=== PATIENT | female | born 1975 | race American Indian/Alaskan Native ===

== ENCOUNTER 2016-12-25 22:02 | Inpatient (IN) | payer MEDICAID, OTHER ==
[2016-12-25 23:16] LABS: Basophils % (Auto) 0.7 % (0.0-1.8); Eosinophils % (Auto) 1.2 % (0.0-4.3); Hematocrit 40.5 % (30.3-42.9); Hemoglobin 13.4 gm/dl (10.1-14.3); Mean Corpuscular HGB Conc 33 % (30-34); Mean Corpuscular Hemoglobin 30 pg (28-32); Mean Corpuscular Volume 89 fl (79-97); Platelet Count 228 K/mm3 (140-440); Red Blood Count 4.54 M/mm3 (3.65-5.03); Red Cell Distribution Width 14.1 % (13.2-15.2)
[2016-12-25 23:32] LABS: Anion Gap 20 mmol/L; BUN/Creatinine Ratio 16.66; Blood Urea Nitrogen 10 mg/dL (7-17); Calcium 9.6 mg/dL (8.4-10.2); Carbon Dioxide 24 mmol/L (22-30); Chloride 95.6 mmol/L (98-107); Potassium 4.2 mmol/L (3.6-5.0); Sodium 135 mmol/L (137-145)
[2016-12-25 23:43] LABS: Glucose 512 mg/dL (65-100)
[2016-12-26 02:08] LABS: Bacteria,Urine 1+ /HPF (Negative); Bilirubin,Urine NEG (Negative); Blood,Urine NEG (Negative); Ketones,Urine NEG (Negative); Leukocyte Esterase,Urine TR (Negative); Mucus,Urine FEW /HPF; Nitrite,Urine POS (Negative); Protein,Urine <15 mg/dL mg/dL (Negative); Urobilinogen,Urine < 2.0 mg/dL (<2.0)
--- NOTE | 2016-12-26 07:39 | Emergency Department Report ---
ED Chest Pain HPI - General Chief Complaint: Chest Pain Stated Complaint: CP Time Seen by Provider: 12/26/16 06:38 Source: patient Mode of arrival: Ambulatory Limitations: No Limitations - History of Present Illness Initial Comments: 41-year-old female with a history of hypertension and diabetes. Noncompliant with medications. Here with complaint of chest pain that has been worsening over the course last 3 days. Patient states the pain is in on the left side of her chest. It occurs with activity or at rest. She does state that she is more fatigue and short of breath. Denies fevers chills nausea vomiting. States she's been out of her medication for over a month. He is to take lisinopril and unknown insulin. MD Complaint: chest pain -: days(s) (3) Onset: during rest, during exertion Pain Location: left chest Pain Radiation: none Severity: moderate Severity scale (0 -10): 5 Quality: sharp Consistency: constant Improves With: nothing Worsens With: exertion re: dyspnea. denies: nausea, vomting, diaphoresis Other Symptoms: denies: cough, fever, syncope, rash, acid taste in mouth, leg swelling, palpitations, burping, other - Related Data Previous Rx's Medication Instructions Recorded Last Taken Type Ibuprofen [Motrin 600 MG tab] 600 mg PO Q6H PRN #30 tablet 03/23/14 Unknown Rx Insulin NPH, Human [NovoLIN N] 10 unit SUB-Q QPMDIAB #1 vial 03/23/14 Unknown Rx Insulin NPH, Human [NovoLIN N] 21 unit SUB-Q QDDIAB #1 vial 03/23/14 Unknown Rx Insulin Regular, Human [HumuLIN R] 9 units SUB-Q QPMDIAB #1 vial 03/23/14 Unknown Rx Insulin Regular, Human [HumuLIN R] 12 units SUB-Q QDDIAB #1 vial 03/23/14 Unknown Rx Labetalol [Normodyne TAB] 300 mg PO BID #60 tablet 03/23/14 Unknown Rx oxyCODONE /ACETAMINOPHEN [Percocet 2 tab PO Q6H PRN #30 tablet 03/23/14 Unknown Rx 5/325 mg] Allergies Allergy/AdvReac Type Severity Reaction Status Date / Time aspirin Allergy Swelling Verified 04/21/13 22:41 doxycycline Allergy Swelling Verified 04/21/13 22:41 Heart Score - HEART Score History: Moderately suspicious EKG: Non-specific Age: < 45 Risk factors: > 3 risk factors or hx of atherosclerotic disease Troponin: < normal limit HEART Score: 4 ED Review of Systems ROS: Stated complaint: CP Other details as noted in HPI Comment: All other systems reviewed and negative Constitutional: denies: chills, fever Eyes: denies: eye pain, eye discharge, vision change ENT: denies: ear pain, throat pain Respiratory: denies: cough, shortness of breath, wheezing Cardiovascular: denies: chest pain, palpitations Endocrine: no symptoms reported Gastrointestinal: denies: abdominal pain, nausea, diarrhea Genitourinary: denies: urgency, dysuria, discharge Musculoskeletal: denies: back pain, joint swelling, arthralgia Skin: denies: rash, lesions Neurological: denies: headache, weakness, paresthesias Psychiatric: denies: anxiety, depression Hematological/Lymphatic: denies: easy bleeding, easy bruising ED Past Medical Hx - Past Medical History Hx Hypertension: Yes (lisinopril) Hx Congestive Heart Failure: No Hx Diabetes: Yes Hx Deep Vein Thrombosis: No Hx Renal Disease: No Hx Sickle Cell Disease: No Hx Seizures: No Hx Asthma: No Hx COPD: No Hx HIV: No - Surgical History Additional Surgical History: foot surgery cryo surgery,2 c-sections, tubiligation - Family History Family history: no significant - Social History Smoking Status: Never Smoker Substance Use Type: None - Medications Home Medications: Home Medications Medication Instructions Recorded Confirmed Last Taken Type Ibuprofen [Motrin 600 MG tab] 600 mg PO Q6H PRN #30 tablet 03/23/14 Unknown Rx Insulin NPH, Human [NovoLIN N] 10 unit SUB-Q QPMDIAB #1 vial 03/23/14 Unknown Rx Insulin NPH, Human [NovoLIN N] 21 unit SUB-Q QDDIAB #1 vial 03/23/14 Unknown Rx Insulin Regular, Human [HumuLIN R] 9 units SUB-Q QPMDIAB #1 vial 03/23/14 Unknown Rx Insulin Regular, Human [HumuLIN R] 12 units SUB-Q QDDIAB #1 vial 03/23/14 Unknown Rx Labetalol [Normodyne TAB] 300 mg PO BID #60 tablet 03/23/14 Unknown Rx oxyCODONE /ACETAMINOPHEN [Percocet 2 tab PO Q6H PRN #30 tablet 03/23/14 Unknown Rx 5/325 mg] ED Physical Exam - General Limitations: No Limitations General appearance: alert, in no apparent distress - Head Head exam: Present: atraumatic, normocephalic - Eye Eye exam: Present: normal appearance. Absent: PERRL, EOMI, scleral icterus - ENT ENT exam: Present: mucous membranes moist - Neck Neck exam: Present: normal inspection - Respiratory Respiratory exam: Present: normal lung sounds bilaterally. Absent: respiratory distress, wheezes, rales - Cardiovascular Cardiovascular Exam: Present: regular rate, normal rhythm. Absent: systolic murmur, diastolic murmur, rubs, gallop - GI/Abdominal GI/Abdominal exam: Present: soft, normal bowel sounds - Extremities Exam Extremities exam: Present: normal inspection - Back Exam Back exam: Present: normal inspection - Neurological Exam Neurological exam: Present: alert, oriented X3 - Psychiatric Psychiatric exam: Present: normal affect, normal mood - Skin Skin exam: Present: warm, dry, intact, normal color. Absent: rash ED Course Vital Signs 12/25/16 12/26/16 12/26/16 22:31 03:47 06:09 Temperature 100.3 F H 99.1 F Pulse Rate 82 72 Respiratory 18 18 Rate Blood Pressure 160/110 189/101 O2 Sat by Pulse 100 100 98 Oximetry 12/26/16 12/26/16 12/26/16 06:15 06:30 06:45 Temperature Pulse Rate 74 73 79 Respiratory 22 13 26 H Rate Blood Pressure 194/98 174/102 193/102 O2 Sat by Pulse 98 100 98 Oximetry ED Medical Decision Making - Lab Data Result diagrams: 12/25/16 22:53 12/25/16 22:53 Laboratory Results - last 24 hr 12/25/16 12/25/16 12/25/16 22:53 22:53 Unknown WBC 8.0 RBC 4.54 Hgb 13.4 Hct 40.5 MCV 89 MCH 30 MCHC 33 RDW 14.1 Plt Count 228 Lymph % (Auto) 32.7 [place] % (Auto) 5.6 Eos % (Auto) 1.2 Baso % (Auto) 0.7 Lymph # 2.6 [place] # 0.5 Eos # 0.1 Baso # 0.1 Seg Neutrophils % 59.8 Seg Neutrophils # 4.8 Sodium 135 L Potassium 4.2 Chloride 95.6 L Carbon Dioxide 24 Anion Gap 20 BUN 10 Creatinine 0.6 L Estimated GFR > 60 BUN/Creatinine Ratio 16.66 Glucose 512 H* Calcium 9.6 Troponin T < 0.010 Urine Color Yellow Urine Turbidity Cloudy Urine pH 6.0 Ur Specific [place] 1.027 Urine Protein <15 mg/dl Urine Glucose (UA) >=500 Urine Ketones Neg Urine Blood Neg Urine Nitrite Pos Urine Bilirubin Neg Urine Urobilinogen < 2.0 Ur Leukocyte Esterase Tr Urine WBC (Auto) 3.0 Urine RBC (Auto) 2.0 U Epithel Cells (Auto) 27.0 H Urine Bacteria (Auto) 1+ Amorphous Crystals 2+ Urine Mucus Few Urine HCG, Qual Negative 12/26/16 12/26/16 02:27 05:06 WBC RBC Hgb Hct MCV MCH MCHC RDW Plt Count Lymph % (Auto) [place] % (Auto) Eos % (Auto) Baso % (Auto) Lymph # [place] # Eos # Baso # Seg Neutrophils % Seg Neutrophils # Sodium Potassium Chloride Carbon Dioxide Anion Gap BUN Creatinine Estimated GFR BUN/Creatinine Ratio Glucose Calcium Troponin T < 0.010 < 0.010 Urine Color Urine Turbidity Urine pH Ur Specific [place] Urine Protein Urine Glucose (UA) Urine Ketones Urine Blood Urine Nitrite Urine Bilirubin Urine Urobilinogen Ur Leukocyte Esterase Urine WBC (Auto) Urine RBC (Auto) U Epithel Cells (Auto) Urine Bacteria (Auto) Amorphous Crystals Urine Mucus Urine HCG, Qual - EKG Data -: EKG Interpreted by Mi - EKG Data 12/26/16 07:40 Sinus 77 normal axis normal intervals and T-wave flattening in leads V3 through V5 - Medical Decision Making 41-year-old female here with persistent chest pain for 3 days. Patient has a heart score of 4 placing her at moderate risk. She is been off from long-term medications for hypertension and diabetes for some time. Patient will need stress test to rule out cardiac pathology. Plan discussed case with hospitalist. Portions of this chart were dictated with dictation software. There may be dictation errors contained within this note. Critical care attestation.: If time is entered above; I have spent that time in minutes in the direct care of this critically ill patient, excluding procedure time. ED Disposition Clinical Impression: Chest pain Disposition: OP ADMIT IP TO THIS HOSP Is pt being admited?: Yes Condition: Stable Instructions: Chest Pain (ED) Referrals: PRIMARY CARE, [Primary Care Provider] - 3-5 Days
[2016-12-26] MEDS ORDERED: ASPIRIN PO ONE (07:41)
[2016-12-26] MEDS ORDERED: NACL 0.9% 1000 ML 1,000 ML IV ONE (07:41)
[2016-12-26] MEDS ORDERED: ZESTRIL PO ONE (07:41)
--- NOTE | 2016-12-26 09:06 | XRay Report ---
AP CHEST: HISTORY: chest pain AP view of the chest demonstrates a normal mediastinal and cardiac contour with clear lungs and normal bony and soft tissue structures. IMPRESSION: Unremarkable AP chest.
--- NOTE | 2016-12-26 09:14 | Admit Criteria Form ---
Admission Criteria Documentation: CARDIOLOGY GRG Clinical Indications for Admission to Inpatient Care ([place]/check or initial the applicable condition/criteria) Hospital admission is needed for appropriate care of the patient because of ANY ONE of the following: [ ] I. Hemodynamic instability as indicated by ALL of the following (1)(2)(3) (4)(5)(6)(7)(8)(9)(10) [ ]a) Vital sign abnormality not readily corrected by appropriate treatment with 12-24 hours for ANY ONE: [ ]i) Hypotension that persists despite appropriate treatment (eg, volume repletion) [ ]ii) Tachycardiathat persists despite appropriate tx ( e.g., analgesia, fluids, sedation as indicated [ ]iii) Orthostatic vital sign changes that persists despite appropriate treatment (eg, volume repletion) [ ]b) Vital sign abnormailty that is severe indicated by ANY ONE of the following: [ ]i) Inadequate perfusion indicated by ANY ONE of the following: [ ] 1) Lactic acidosis (> 2 mmol/L) [ ] 2) New abnormal capillary refill (> 3 seconds) [ ] 3) Reduced urine output [ ] 4) New altered mental status [ ] 5) Myocardial Ischemia [ ] 6) Other metabolic acidosis (arterial pH <7.35 ) not otherwise explained. [ ]ii) Mean arterial pressure[A] less than 60 mm Hg [ ]iii) Mean arterial pressure[A] less than 70 mm Hg after 30 minutes of appropriate treatment (eg, fluid resuscitation) [ ]iv) Sustained heart rate greater than 120 beats per minute in adult or child 6 years or older[B] [ ]v) IV inotropic or vasopressor medication required to maintain adequate blood pressure or perfusion [ ] II. Severe heart failure as indicated by ANY ONE of the following(17)(18) [ ]a) Respiratory distress [ ]b) Hypotension [ ]c) Debilitating anasarca refractory to therapy (eg, tissue breakdown with infection)[C](19) [ ]d) Cardiac arrhythmias of immediate concern [ ]e) Myocardial ischemia [ ] III. Cardiac arrhythmias or findings of immediate concern indicated by ANY ONE of the following (21)(22): [ ] a) Heart rhythms that are inherently dangerous or unstable indicated by ANY ONE of the following (23)(24)(25): [ ] i) Resuscitated ventricular fibrillation or cardiac arrest [ ] ii) Ventricular escape rhythm [ ] iii) Sustained ventricular tachycardia (30 seconds or more of ventricular rhythm at greater than 100 beats per minute) [ ] iv) Nonsustained ventricular tachycardia and ANY ONE of the following: [ ] 1) Suspected cardiac ischemia as cause or consequence of ventricular tachycardia [ ] 2) Acute myocarditis [ ] b) Unstable cardiac conduction defects indicated by ANY ONE of the following(25)(26)(27) [ ] i) Type II second-degree atrioventricular block [ ]ii) Third-degree atrioventricular block [ ]iii) New-onset left bundle branch block with suspected myocardial ischemia [ ]c) Any heart rhythm and ANY ONE of the following (23)(24)(28)(29) (30) [ ] i) Continuous long-term ECG monitoring needed (e.g., initiation of drug requiring monitoring for more than 24 hours) [ ] ii) Patient has automatic implanted cardioverter defibrillator that is repeatedly firing, malfunctioning, or in need of immediate adjustment of settings beyond the scope of ambulatory or observation care [ ]d) Heart rhythms of concern due to ANY ONE of the following: [ ] i) Hypotension [ ] ii) Respiratory distress [ ] iii) Association with other significant symptoms (e.g., bradycardia with syncope or ongoing dizziness, supraventricular tachycardia with chest pain (28)(29)(31) [ ] IV. Monitoring for cardiac contusion beyond the scope of observation care needed [A](32)(33)(34) [ ] V. Surgical or device complication (e.g., valve replacement complication , ICD disfunction or pacemaker dysfunction) (49)(50)(51)(52)(53)(54) [ ] . Inpatient palliative care needed. [F](51)(52) Also use Inpatient Palliative Care Criteria [ ] VII. Nonbacterial thrombotic (marantic) endocarditis(43)(44)(55)(56)(57) [X] VIII. Cardiology condition, symptom, or finding for which emergency and observation care has failed or are not considered appropriate. [ ] IX. Acute valvular disease requiring inpatient as indicated by ANY ONE of the following (40)(41) [ ]a) Acute valvular regurgitation (42) [ ]b) Noninfectious valvulitis (43)(44) [ ]c) Obstructive valve thrombosis (45)(46) [ ]d) Paravalvular leak(47)(48) [ ]e) Other significant valvular disorder remaining after emergency or observation level of care (as appropriate) [ ]X. Pericardial disease requiring inpatient treatment as indicated by ANY ONE of the following (35)(36)(37)(38) [ ]a) Suspected tamponade [ ]b) Hemopericardium [ ]c) Other significant pericardial disorder remaining after emergency or observation level of care (as appropriate)(39) [ ] XI. Cardiac ischemia beyond scope of emergency and observation care. [ ] XII. Cyanotic heart disease requiring inpatient care as indicated by 1 or more of the following(58)(59)(60): [ ]a) Acute onset of hypoxemia [ ]b) Exacerbation [ ] XIII. Hypertension requiring inpatient treatment as indicated by ANYONE of the following(11)(12)(13)(14): [ ]a) Severe hypertension (SBP greater than 180 mm Hg or DBP greater than 110 mm Hg, or greater than the 95th percentile for age, gender, and height in pediatric patients) that cannot be controlled (eg, to SBP less than 160 mm Hg and DBP less than 100 mm Hg) by emergency department or observation care treatment(15) [ ]b) Acute end organ damage secondary to hypertension (SBP greater than 140 mm Hg or DBP greater than 90 mm Hg) as indicated by ANYONE of the following: [ ] i) Hypertensive encephalopathy (eg, Altered mental status)(16) [ ] ii) Cerebral infarction [ ] iii) Intracranial hemorrhage [ ] iv) Myocardial ischemia or infarction [ ] v) Heart failure (eg, pulmonary edema) [ ] vi) Aortic dissection [ ] vii) Increased creatinine (new) with reduction of more than 50% in estimated glomerular filtration rate from baseline [ ] viii) Papilledema [ ] ix) Retinal hemorrhage [ ] x) Microangiopathic hemolytic anemia [ ] xi) Seizure [ ] xii) Other significant finding secondary to hypertension [ ] XIV. Complications of transplanted heart indicated by ANY ONE of the following(61): [ ]a) Acute graft rejection requiring inpatient management (eg, intravenous imunosuppression)(62)(63) [ ]b) Acute graft heart failure indicated by ANY ONE of the following(64): [ ] i) Hemodynamic instability [ ] ii) Cardiac arrhythmias of immediate concern [ ] iii) Pulmonary edema that is very severe (eg, mechanical ventilation needed, imminent or likely, need for 100% oxygen to keep oxygen saturation above 90%) [ ] iv) Pulmonary edema that is persistent as indicated by ALL of the following: [ ] 1) New need for oxygen therapy to keep oxygen saturation above 90 % (or increased FiO2 need from baseline) [ ] 2) Has not improved sufficiently with emergency department or observation care IV diuretics or other heart failure treatments[E]. [ ] iv) Altered mental status that is severe or persistent [ ] iv) Increased creatinine (new on laboratory test) with reduction of more than 50% in estimated glomerular filtration rate from baseline [ ] iv) Progressively (ongoing) rising creatinine (known from past laboratory test) with reduction of more than 25% in estimated glomerular filtration rate from baseline [ ] iv) Acute renal failure [ ] iv) Acute peripheral ischemia (eg, examination shows pulseless, cool, mottled, or cyanotic extremity) [ ] iv) Pulmonary artery catheter monitoring needed [ ] iv) Other sign or symptom of heart failure requiring inpatient treatment (ie, too severe or not responsive to outpatient and observation care treatment) [ ]c) Infection requiring inpatient management (eg, Hemodynamic instability, need for intravenous antimicrobial treatment)(66)(67)(68)(69)(70) [ ]d) Cardiac allograft vasculopathy requiring inpatient management (eg evidence of cardiacischemia)(71) [ ]e) Other complication of transplanted heart (eg, stroke, severe pulmonary hypertension, severe valvular dysfunction) requiring inpatient management(72) The original [employer] content created by [employer] has been revised. The portions of the content which have been revised are identified through the use of italic text or in bold, and [facility] has neither reviewed nor approved the modified material. All other unmodified content is copyright [facility]. Please see references footnoted in the original [facility] edition 2017 Admission Criteria Met: Yes
[2016-12-26] MEDS ORDERED: TYLENOL PO PRN (09:28)
[2016-12-26] MEDS ORDERED: ZOFRAN IM PRN (09:33)
--- NOTE | 2016-12-26 09:35 | History and Physical Report ---
<RY DEL CID - Last Filed: 12/26/16 15:04> History of Present Illness Date of examination: 12/26/16 Date of admission: 12/26/2016 Chief complaint: Chest pain History of present illness: Patient is a 41 years old -[place] female with past medical history of hypertension and diabetes mellitus type 2, who presents to the emergency department complaining of chest pain. She states that the pain began three days ago and consisted of a sharp pain. The pain was located over the Midsternal somewhat to the left shoulder area. She describes the quality as something is sitting on her chest /pressure without radiation to the shoulder, arm, back, or jaw. It has been a constant pain since it started three days ago. no alleviating or aggravating factors. She continued to have several episodes of the pain throughout this morning, she got worried so she decided to come to emergency room. Patient took Tylenol and Motrin with out improvement. At the ED the patient was given nitroglycerin and ASA somewhat believes relief the pain. She reported shortness of breath and dyspnea on exertion. She denies nausea, vomiting heart palpitations lightheadedness, dizziness, and diaphoresis during these episodes of pain. The patient currently denies having chest pain. She has never had chest pain in the past and no prior cardiac workup. Medications and Allergies Allergies Allergy/AdvReac Type Severity Reaction Status Date / Time aspirin Allergy Swelling Verified 04/21/13 22:41 doxycycline Allergy Swelling Verified 04/21/13 22:41 Home Medications Medication Instructions Recorded Confirmed Last Taken Type No Known Home Medications [No 12/26/16 12/26/16 Unknown History Reported Home Medications] Active Meds: Active Medications Acetaminophen (Tylenol) 650 mg PO Q4H PRN PRN Reason: Pain MILD(1-3)/Fever >100.5/JACOBS Aspirin (Aspirin) 325 mg PO QDAY [facility] Enoxaparin Sodium (Lovenox) 40 mg SUB-Q QDAY [facility] Insulin Human NPH (Novolin N) 10 unit SUB-Q QPMDIAB [facility] Insulin Human NPH (Novolin N) 21 unit SUB-Q QDDIAB [facility] Insulin Human Regular (Novolin R) 9 units SUB-Q QPMDIAB [facility] Labetalol HCl (Normodyne) 300 mg PO BID [facility] Ondansetron HCl (Zofran) 4 mg IM Q4H PRN PRN Reason: Nausea And Vomiting Review of Systems Constitutional: no weight loss, no weight gain, no fever Ears, nose, mouth and throat: no ear pain, no ear discharge, no tinnitis, no decreased hearing Breasts: no change in shape, no swelling, no mass Cardiovascular: chest pain, shortness of breath, no orthopnea, no palpitations, no rapid/irregular heart beat Respiratory: no cough with sputum, no excessive sputum, no hemoptysis, no shortness of breath Gastrointestinal: no nausea, no vomiting, no diarrhea, no constipation Genitourinary Female: no dyspareunia, no dysmenorrhea, no pelvic pain Menstruation: no premenarcheal, no post hysterectomy, no ammenorrhea Rectal: no pain, no incontinence Musculoskeletal: no neck stiffness, no neck pain, no shooting arm pain, no arm numbness/tingling Integumentary: no rash, no pruritis, no redness, no sores Neurological: no paralysis, no weakness, no parathesias, no numbness Psychiatric: no anxiety, no memory loss, no change in sleep habits, no sleep disturbances Endocrine: no cold intolerance, no heat intolerance, no polyphagia, no excessive thirst, no weight change Hematologic/Lymphatic: no easy bruising, no easy bleeding Allergic/Immunologic: no urticaria, no allergic rhinitis Exam - Constitutional Vitals: Temp Pulse Resp BP Pulse Ox 98.3 F 75 14 197/105 98 12/26/16 08:05 12/26/16 08:05 12/26/16 08:05 12/26/16 08:05 12/26/16 08:05 General appearance: Present: no acute distress - EENT Eyes: Present: PERRL ENT: hearing intact - Neck Neck: Present: supple - Respiratory Respiratory effort: normal Respiratory: bilateral: CTA - Cardiovascular Rhythm: regular Heart Sounds: Present: S1 & S2 - Extremities Extremities: no ischemia Peripheral Pulses: within normal limits - Abdominal General gastrointestinal: Present: soft, non-tender Female genitourinary: Present: deferred - Rectal Rectal Exam: deferred - Integumentary Integumentary: Present: clear, warm, dry - Musculoskeletal Musculoskeletal: strength equal bilaterally - Psychiatric Psychiatric: appropriate mood/affect - Neurologic Neurologic: CNII-XII intact - Allied Health Allied health notes reviewed: nursing Results - Labs CBC & Chem 7: 12/25/16 22:53 12/25/16 22:53 Labs: Laboratory Last Values WBC 8.0 K/mm3 (4.5-11.0) 12/25/16 22:53 RBC 4.54 M/mm3 (3.65-5.03) 12/25/16 22:53 Hgb 13.4 gm/dl (10.1-14.3) 12/25/16 22:53 Hct 40.5 % (30.3-42.9) 12/25/16 22:53 MCV 89 fl (79-97) 12/25/16 22:53 MCH 30 pg (28-32) 12/25/16 22:53 MCHC 33 % (30-34) 12/25/16 22:53 RDW 14.1 % (13.2-15.2) 12/25/16 22:53 Plt Count 228 K/mm3 (140-440) 12/25/16 22:53 Lymph % (Auto) 32.7 % (13.4-35.0) 12/25/16 22:53 Jerauld % (Auto) 5.6 % (0.0-7.3) 12/25/16 22:53 Eos % (Auto) 1.2 % (0.0-4.3) 12/25/16 22:53 Baso % (Auto) 0.7 % (0.0-1.8) 12/25/16 22:53 Lymph # 2.6 K/mm3 (1.2-5.4) 12/25/16 22:53 Jerauld # 0.5 K/mm3 (0.0-0.8) 12/25/16 22:53 Eos # 0.1 K/mm3 (0.0-0.4) 12/25/16 22:53 Baso # 0.1 K/mm3 (0.0-0.1) 12/25/16 22:53 Seg Neutrophils % 59.8 % (40.0-70.0) 12/25/16 22:53 Seg Neutrophils # 4.8 K/mm3 (1.8-7.7) 12/25/16 22:53 Sodium 135 mmol/L (137-145) L 12/25/16 22:53 Potassium 4.2 mmol/L (3.6-5.0) 12/25/16 22:53 Chloride 95.6 mmol/L (98-107) L 12/25/16 22:53 Carbon Dioxide 24 mmol/L (22-30) 12/25/16 22:53 Anion Gap 20 mmol/L 12/25/16 22:53 BUN 10 mg/dL (7-17) 12/25/16 22:53 Creatinine 0.6 mg/dL (0.7-1.2) L 12/25/16 22:53 Estimated GFR > 60 ml/min 12/25/16 22:53 BUN/Creatinine Ratio 16.66 % 12/25/16 22:53 Glucose 512 mg/dL (65-100) H* 12/25/16 22:53 Calcium 9.6 mg/dL (8.4-10.2) 12/25/16 22:53 Troponin T < 0.010 ng/mL (0.00-0.029) 12/26/16 05:06 Urine Color Yellow (Yellow) 12/25/16 Unknown Urine Turbidity Cloudy (Clear) 12/25/16 Unknown Urine pH 6.0 (5.0-7.0) 12/25/16 Unknown Ur Specific [place] 1.027 (1.003-1.030) 12/25/16 Unknown Urine Protein <15 mg/dl mg/dL (Negative) 12/25/16 Unknown Urine Glucose (UA) >=500 mg/dL (Negative) 12/25/16 Unknown Urine Ketones Neg mg/dL (Negative) 12/25/16 Unknown Urine Blood Neg (Negative) 12/25/16 Unknown Urine Nitrite Pos (Negative) 12/25/16 Unknown Urine Bilirubin Neg (Negative) 12/25/16 Unknown Urine Urobilinogen < 2.0 mg/dL (<2.0) 12/25/16 Unknown Ur Leukocyte Esterase Tr (Negative) 12/25/16 Unknown Urine WBC (Auto) 3.0 /HPF (0.0-6.0) 12/25/16 Unknown Urine RBC (Auto) 2.0 /HPF (0.0-6.0) 12/25/16 Unknown U Epithel Cells (Auto) 27.0 /HPF (0-13.0) H 12/25/16 Unknown Urine Bacteria (Auto) 1+ /HPF (Negative) 12/25/16 Unknown Amorphous Crystals 2+ 12/25/16 Unknown Urine Mucus Few /HPF 12/25/16 Unknown Urine HCG, Qual Negative (Negative) 12/25/16 Unknown - Imaging and Cardiology Chest x-ray: image reviewed (Unremarkable chest) Assessment and Plan Assessment and plan: Chest Pain We will admit to telemetry floor. EKG normal sinus rate [address] elevation or T-wave inversion. We will get another EKG ordered for a changes that have taken since the first one obtained Negative cardiac enzyme X3 Start on aspirin Nitroglycerin when necessary Morphine ordered for pain Stress test ordered. Diabetes mellitus Accu-Chek before meals and at bedtime Sliding-scale insulin/NovoLog Hypertension Started on HCTZ 12mg daily IV hydralazine for SBP >160 Closely monitor blood pressure DT prophylaxis Lovenox Advance Directives: Yes VTE prophylaxis?: Chemical Contraindication Mechanical VTE Prophylaxis: Treatment Not Indicated Plan of care discussed with patient/family: Yes <MICHELLE WAGNER - Last Filed: 12/26/16 23:34> History of Present Illness Date of admission: 12/26/16 09:28 Medications and Allergies Active Meds: Active Medications Acetaminophen (Tylenol) 650 mg PO Q4H PRN PRN Reason: Pain MILD(1-3)/Fever >100.5/JACOBS Aspirin (Aspirin) 325 mg PO QDAY [facility] Last Admin: 12/26/16 10:33 Dose: Not Given Dextrose (D50w (25gm) Syringe) 50 ml IV PRN PRN PRN Reason: Hypoglycemia Enoxaparin Sodium (Lovenox) 40 mg SUB-Q QDAY [facility] Last Admin: 12/26/16 11:42 Dose: 40 mg Sodium Chloride (Nacl 0.9% 1000 Ml) 1,000 mls @ 75 mls/hr IV DIRECT [facility] Last Admin: 12/26/16 12:44 Dose: 75 mls/hr Influenza Virus Vaccine Quadrival (Fluarix Quad [id number](36 Mos+)) 0.5 ml IM .ONCE ONE Stop: 12/27/16 12:01 Insulin Aspart (Novolog) 0 units SUB-Q AC [facility] PRN Reason: Protocol Last Admin: 12/26/16 17:24 Dose: 8 units Insulin Aspart (Novolog) 0 units SUB-Q QHS [facility] PRN Reason: Protocol Last Admin: 12/26/16 22:08 Dose: 6 units Insulin Human NPH (Novolin N) 10 unit SUB-Q QPMDIAB [facility] Last Admin: 12/26/16 17:24 Dose: 10 unit Insulin Human NPH (Novolin N) 21 unit SUB-Q QDDIAB [facility] Insulin Human Regular (Novolin R) 9 units SUB-Q QPMDIAB [facility] Last Admin: 12/26/16 17:25 Dose: 9 units Labetalol HCl (Normodyne) 300 mg PO BID [facility] Last Admin: 12/26/16 22:09 Dose: 300 mg Morphine Sulfate (Morphine) 2 mg IV Q4H PRN PRN Reason: Pain, Moderate (4-6) Ondansetron HCl (Zofran) 4 mg IM Q4H PRN PRN Reason: Nausea And Vomiting Exam - Constitutional Vitals: Temp Pulse Resp BP Pulse Ox 98.4 F 85 18 174/84 99 12/26/16 20:00 12/26/16 22:09 12/26/16 20:00 12/26/16 22:09 12/26/16 20:00 Results - Labs CBC & Chem 7: 12/25/16 22:53 12/25/16 22:53 Labs: Laboratory Last Values WBC 8.0 K/mm3 (4.5-11.0) 12/25/16 22:53 RBC 4.54 M/mm3 (3.65-5.03) 12/25/16 22:53 Hgb 13.4 gm/dl (10.1-14.3) 12/25/16 22:53 Hct 40.5 % (30.3-42.9) 12/25/16 22:53 MCV 89 fl (79-97) 12/25/16 22:53 MCH 30 pg (28-32) 12/25/16 22:53 MCHC 33 % (30-34) 12/25/16 22:53 RDW 14.1 % (13.2-15.2) 12/25/16 22:53 Plt Count 228 K/mm3 (140-440) 12/25/16 22:53 Lymph % (Auto) 32.7 % (13.4-35.0) 12/25/16 22:53 Jerauld % (Auto) 5.6 % (0.0-7.3) 12/25/16 22:53 Eos % (Auto) 1.2 % (0.0-4.3) 12/25/16 22:53 Baso % (Auto) 0.7 % (0.0-1.8) 12/25/16 22:53 Lymph # 2.6 K/mm3 (1.2-5.4) 12/25/16 22:53 Jerauld # 0.5 K/mm3 (0.0-0.8) 12/25/16 22:53 Eos # 0.1 K/mm3 (0.0-0.4) 12/25/16 22:53 Baso # 0.1 K/mm3 (0.0-0.1) 12/25/16 22:53 Seg Neutrophils % 59.8 % (40.0-70.0) 12/25/16 22:53 Seg Neutrophils # 4.8 K/mm3 (1.8-7.7) 12/25/16 22:53 Sodium 135 mmol/L (137-145) L 12/25/16 22:53 Potassium 4.2 mmol/L (3.6-5.0) 12/25/16 22:53 Chloride 95.6 mmol/L (98-107) L 12/25/16 22:53 Carbon Dioxide 24 mmol/L (22-30) 12/25/16 22:53 Anion Gap 20 mmol/L 12/25/16 22:53 BUN 10 mg/dL (7-17) 12/25/16 22:53 Creatinine 0.6 mg/dL (0.7-1.2) L 12/25/16 22:53 Estimated GFR > 60 ml/min 12/25/16 22:53 BUN/Creatinine Ratio 16.66 % 12/25/16 22:53 Glucose 512 mg/dL (65-100) H* 12/25/16 22:53 POC Glucose 304 (70-105) H 12/26/16 21:32 Calcium 9.6 mg/dL (8.4-10.2) 12/25/16 22:53 Troponin T < 0.010 ng/mL (0.00-0.029) 12/26/16 05:06 Urine Color Yellow (Yellow) 12/25/16 Unknown Urine Turbidity Cloudy (Clear) 12/25/16 Unknown Urine pH 6.0 (5.0-7.0) 12/25/16 Unknown Ur Specific [place] 1.027 (1.003-1.030) 12/25/16 Unknown Urine Protein <15 mg/dl mg/dL (Negative) 12/25/16 Unknown Urine Glucose (UA) >=500 mg/dL (Negative) 12/25/16 Unknown Urine Ketones Neg mg/dL (Negative) 12/25/16 Unknown Urine Blood Neg (Negative) 12/25/16 Unknown Urine Nitrite Pos (Negative) 12/25/16 Unknown Urine Bilirubin Neg (Negative) 12/25/16 Unknown Urine Urobilinogen < 2.0 mg/dL (<2.0) 12/25/16 Unknown Ur Leukocyte Esterase Tr (Negative) 12/25/16 Unknown Urine WBC (Auto) 3.0 /HPF (0.0-6.0) 12/25/16 Unknown Urine RBC (Auto) 2.0 /HPF (0.0-6.0) 12/25/16 Unknown U Epithel Cells (Auto) 27.0 /HPF (0-13.0) H 12/25/16 Unknown Urine Bacteria (Auto) 1+ /HPF (Negative) 12/25/16 Unknown Amorphous Crystals 2+ 12/25/16 Unknown Urine Mucus Few /HPF 12/25/16 Unknown Urine HCG, Qual Negative (Negative) 12/25/16 Unknown Assessment and Plan Assessment and plan: I saw and evaluated the patient. I agree with the findings and the plan of care as documented in the Nurse Practitioner's~note, with the following corrections and additions. patient seen and examined she denies any pleuritic, reproducible nature. no aggravating or alleviating factors noted. check D dimer Check Tsh.free t4
[2016-12-26] MEDS ORDERED: NACL 0.9% 1000 ML 1,000 ML IV SCH (10:00)
[2016-12-26] MEDS: ASPIRIN PO SCH (10:33)
[2016-12-26] MEDS: NORMODYNE PO SCH ×2 (10:45→22:09)
[2016-12-26] MEDS: LOVENOX SUB-Q SCH (11:42)
[2016-12-26] MEDS ORDERED: D50W (25GM) Syringe IV PRN (15:06)
[2016-12-26] MEDS: NOVOLOG SUB-Q SCH (17:24)
[2016-12-26] MEDS ORDERED: MORPHINE IV PRN (20:27)
[2016-12-26] MEDS ORDERED: NOVOLOG SUB-Q SCH (22:00)
[2016-12-27 05:48] LABS: Basophils % (Auto) 0.3 % (0.0-1.8); Hematocrit 35.7 % (30.3-42.9); Hemoglobin 12.2 gm/dl (10.1-14.3); Mean Corpuscular HGB Conc 34 % (30-34); Mean Corpuscular Hemoglobin 30 pg (28-32); Mean Corpuscular Volume 89 fl (79-97); Platelet Count 215 K/mm3 (140-440); Red Cell Distribution Width 13.7 % (13.2-15.2)
[2016-12-27 05:56] LABS: Anion Gap 18 mmol/L; Blood Urea Nitrogen 9 mg/dL (7-17); Calcium 8.3 mg/dL (8.4-10.2); Carbon Dioxide 23 mmol/L (22-30); Chloride 99.9 mmol/L (98-107); Glucose 298 mg/dL (65-100); Potassium 3.5 mmol/L (3.6-5.0); Sodium 137 mmol/L (137-145)
[2016-12-27] MEDS ORDERED: LEXISCAN IV ONE (09:30)
[2016-12-27] MEDS: NORMODYNE PO SCH (11:01)
[2016-12-27] MEDS: LOVENOX SUB-Q SCH (11:02)
[2016-12-27] MEDS: NOVOLOG SUB-Q SCH ×2 (11:03→11:20)
[2016-12-27] MEDS: ASPIRIN PO SCH ×2 (11:22→11:23)
[2016-12-27 11:31] VITALS: BP 114/72
--- NOTE | 2016-12-27 11:32 | Consultation ---
History of Present Illness Consult date: 12/27/16 Requesting physician: MICHELLE WAGNER Consult reason: chest pain History of present illness: The patient is a 41 years old -[place] female with past medical history significant for hypertension, diabetes mellitus type 2, and ASA allergy (caused angioedema). She is previously unknown to our practice. She presented to the emergency department complaining of chest pain. She states that the pain began four days ago and consisted of a sharp, intermittent, nonradiating, nonexertional, midsternal pain. Patient took Tylenol and Motrin with out improvement. The pain worsened last night which is what prompted her to seen medical attention. At the ED the patient was given nitroglycerin and ASA somewhat believes relief the pain. She reported shortness of breath and dyspnea on exertion. She denies nausea, vomiting, palpitations, diaphoresis, dizziness or syncope. On evaluation, the pt is seen in stress lab. She denies any current chest pain. She has never had chest pain in the past and no prior cardiac workup. Past History Past Medical History: diabetes, hypertension, other (ASA allergy) Past Surgical History: No surgical history Social history: no significant social history. denies: smoking, alcohol abuse, prescription drug abuse Family history: no significant family history Medications and Allergies Allergies Allergy/AdvReac Type Severity Reaction Status Date / Time aspirin Allergy Swelling Verified 04/21/13 22:41 doxycycline Allergy Swelling Verified 04/21/13 22:41 Home Medications Medication Instructions Recorded Confirmed Last Taken Type No Known Home Medications [No 12/26/16 12/26/16 Unknown History Reported Home Medications] Active Meds: Active Medications Acetaminophen (Tylenol) 650 mg PO Q4H PRN PRN Reason: Pain MILD(1-3)/Fever >100.5/JACOBS Aspirin (Aspirin) 325 mg PO QDAY [facility]PL[facility]ED BY [facility] Last Admin: 12/27/16 11:23 Dose: Not Given Dextrose (D50w (25gm) Syringe) 50 ml IV PRN PRN PRN Reason: Hypoglycemia Enoxaparin Sodium (Lovenox) 40 mg SUB-Q QDAY [facility]PLACED BY [facility] Last Admin: 12/27/16 11:02 Dose: 40 mg Sodium Chloride (Nacl 0.9% 1000 Ml) 1,000 mls @ 75 mls/hr IV DIRECT REPLACED BY [facility] Last Admin: 12/26/16 12:44 Dose: 75 mls/hr Influenza Virus Vaccine Quadrival (Fluarix Quad [id number](36 Mos+)) 0.5 ml IM .ONCE ONE Stop: 12/27/16 12:01 Last Admin: 12/27/16 11:22 Dose: Not Given Insulin Aspart (Novolog) 0 units SUB-Q AC [facility]PL[facility] BY [facility] PRN Reason: Protocol Last Admin: 12/27/16 11:20 Dose: 8 units Insulin Aspart (Novolog) 0 units SUB-Q QHS [facility]PL[facility]ED BY [facility] PRN Reason: Protocol Last Admin: 12/26/16 22:08 Dose: 6 units Insulin Human NPH (Novolin N) 25 unit SUB-Q QDDIAB REPLACED BY [facility] Insulin Human NPH (Novolin N) 12 unit SUB-Q QPMDIAB REPLACED BY [facility] Labetalol HCl (Normodyne) 300 mg PO BID REPL[facility]ED BY [facility] Last Admin: 12/27/16 11:01 Dose: 300 mg Morphine Sulfate (Morphine) 2 mg IV Q4H PRN PRN Reason: Pain, Moderate (4-6) Ondansetron HCl (Zofran) 4 mg IM Q4H PRN PRN Reason: Nausea And Vomiting Review of Systems Constitutional: no weight loss, no weight gain, no fever, no chills, no sweats Ears, nose, mouth and throat: no ear pain, no nose pain, no sinus pressure, no sinus pain Cardiovascular: chest pain, no orthopnea, no palpitations, no rapid/irregular heart beat, no edema, no syncope, no lightheadedness, no shortness of breath, no dyspnea on exertion, no paroxysmal nocturnal dyspnea, no high blood pressure Respiratory: no cough, no shortness of breath, no dyspnea on exertion, no congestion, no wheezing, no pain on inspiration Gastrointestinal: no abdominal pain, no nausea, no vomiting, no diarrhea, no constipation, no change in bowel habits Genitourinary Female: no pelvic pain, no flank pain, no menorrhagia, no dysuria , no urinary frequency, no urgency Musculoskeletal: no neck stiffness, no neck pain, no shooting arm pain, no arm numbness/tingling, no low back pain, no shooting leg pain, no leg numbness/ tingling, no redness of joints Integumentary: no rash, no pruritis, no redness, no sores, no wounds Neurological: no head injury, no paralysis, no weakness, no parathesias, no numbness, no tingling, no seizures, no syncope Psychiatric: no anxiety Endocrine: no cold intolerance, no heat intolerance Hematologic/Lymphatic: no easy bruising, no easy bleeding, no lymphadenopathy Allergic/Immunologic: no urticaria, no wheezing, no persistent infections Physical Examination Last Vital Signs Temp 98.6 F 12/27/16 11:29 Pulse 83 12/27/16 11:29 Resp 16 12/27/16 11:29 BP 114/72 12/27/16 11:29 Pulse Ox 98 12/27/16 11:29 General appearance: no acute distress HEENT: Positive: PERRL, Normocephaly, Mucus Membranes Moist Neck: Positive: neck supple, trachea midline Cardiac: Positive: Reg Rate and Rhythm, S1/S2 Lungs: Positive: Normal Exam, clear to auscultation, Normal Breath Sounds Neuro: Positive: Grossly Intact, Cranial Nerve 2-12 Intact Abdomen: Positive: Unremarkable, Soft, Active Bowel Sounds. Negative: Tender Skin: Positive: Clear. Negative: Rash, Wound Musculoskeletal: No Fluid Collection, No Pain, Normal Range of Motion Extremities: Absent: edema Results 12/27/16 04:44 12/27/16 04:44 CBC 12/27/16 Range/Units 04:44 WBC 8.0 (4.5-11.0) K/mm3 RBC 4.00 (3.65-5.03) M/mm3 Hgb 12.2 (10.1-14.3) gm/dl Hct 35.7 (30.3-42.9) % Plt Count 215 (140-440) K/mm3 Lymph # 3.3 (1.2-5.4) K/mm3 [place] # 0.5 (0.0-0.8) K/mm3 Eos # 0.1 (0.0-0.4) K/mm3 Baso # 0.0 (0.0-0.1) K/mm3 Comprehensive Metabolic Panel 12/27/16 Range/Units 04:44 Sodium 137 (137-145) mmol/L Potassium 3.5 L (3.6-5.0) mmol/L Chloride 99.9 (98-107) mmol/L Carbon Dioxide 23 (22-30) mmol/L BUN 9 (7-17) mg/dL Creatinine 0.6 L (0.7-1.2) mg/dL Glucose 298 H (65-100) mg/dL Calcium 8.3 L (8.4-10.2) mg/dL - Imaging and Cardiology EKG: image reviewed EKG interpretations - Telemetry EKG Rhythm: Sinus Rhythm - EKG Sinus rhythms and dysrhythmias: sinus rhythm Repolarization changes or abnormalities: nonspecific abnormality, ST segment, and/or T wave Assessment and Plan Assessment: Chest pain, atypical - ECG with NAF; Radha negative for AMI; currently resolved. HTN DM Obesity Plan: S/p lexiscan MPI stress test this AM which was negative for ischemia, normal LV function. No indication for echo at this time. Currently stable cardiac status. Pt may discharge home from cardiology standpoint. Recommend follow up in our office with Merline Silva NP, within 1-2 weeks of hospital discharge ([phone]). The patient has been seen in conjunction with Dr. Matias who agrees with the assessment and plan of care.
[2016-12-27] MEDS ORDERED: Fluarix Quad 2017-2018(36 MOS+) IM ONE (12:00)
--- NOTE | 2016-12-27 12:18 | Discharge Summary ---
Providers - Providers Date of Admission: 12/26/16 09:28 Attending physician: MICHELLE WAGNER MD 12/26/16 20:27 Consult to Physician [CONS] Routine Consulting Provider: BRANDY LEWIS Reason For Exam: chest pain Place consult to:: madhav salas Notified:: rema Primary care physician: [employer] Hospitalization Reason for admission: chest pain Condition: Stable Hospital course: Patient is a 41 years old -[place] female with past medical history of hypertension and diabetes mellitus type 2, who presents to the emergency department complaining of chest pain. She states that the pain began three days ago and consisted of a sharp pain. The pain was located over the Midsternal somewhat to the left shoulder area. She describes the quality as something is sitting on her chest /pressure without radiation to the shoulder, arm, back, or jaw. It has been a constant pain since it started three days ago. no alleviating or aggravating factors. She continued to have several episodes of the pain throughout this morning, she got worried so she decided to come to emergency room. Patient took Tylenol and Motrin with out improvement. At the ED the patient was given nitroglycerin and ASA somewhat believes relief the pain. She reported shortness of breath and dyspnea on exertion. She denies nausea, vomiting heart palpitations lightheadedness, dizziness, and diaphoresis during these episodes of pain. The patient currently denies having chest pain. She has never had chest pain in the past and no prior cardiac workup. On arrival to the ER she was noted to have significantly elevated blood glucose. She reports compliance with her medications. No DKA was noted. She was started on IV fluids with good improvement. Patient was noted to have a stress test which was negative. Diabetic medication was provided to the patient. Weight loss was advised. Her medications were reduced resumed. Discharge diagnosis Atypical chest pain likely costochondritis Diabetes mellitus Morbid obesity Hypertension Disposition: DC-01 TO HOME OR SELFCARE Time spent for discharge: 35 MINS Core Measure Documentation - Palliative Care Palliative Care/ Comfort Measures: Not Applicable - Core Measures Any of the following diagnoses?: none - VTE Discharge Requirements Deep Vein Thrombosis/Pulmonary Embolism Present on Admission: No Exam - Physical Exam Narrative exam: VITAL SIGNS: Reviewed. GENERAL: The patient appeared well nourished and normally developed. Vital signs as documented. HEAD: No signs of head trauma. EYES: Pupils are equal. Extraocular motions intact. EARS: Hearing grossly intact. MOUTH: Oropharynx is normal. NECK: No adenopathy, no JVD. CHEST: Chest with clear breath sounds bilaterally. No wheezes, rales, or rhonchi. CARDIAC: Regular rate and rhythm. S1 and S2, without murmurs, gallops, or rubs. VASCULAR: No Edema. Peripheral pulses normal and equal in all extremities. ABDOMEN: Soft, without detectable tenderness. No sign of distention. No rebound or guarding, and no masses palpated. Bowel Sounds normal. MUSCULOSKELETAL: Good range of motion of all major joints. Extremities without clubbing, cyanosis or edema. NEUROLOGIC EXAM: Alert and oriented x 3. No focal sensory or strength deficits. Speech normal. Follows commands. PSYCHIATRIC: Mood normal. SKIN: No rash or lesions. - Constitutional Vitals: Temp Pulse Resp BP Pulse Ox 98.6 F 83 16 114/72 98 12/27/16 11:29 12/27/16 11:29 12/27/16 11:29 12/27/16 11:29 12/27/16 11:29 Plan Activity: advance as tolerated, fall precautions Diet: low fat, low salt, diabetic Special Instructions: record daily BP diary, record blood sugar diary Follow up with: PRIMARY CARE, [Primary Care Provider] - 3-5 Days GEE STUART MD [Staff Physician] - 7 Days Prescriptions: Insulin NPH, Human [NovoLIN N] 30 unit SUB-Q QDDIAB #100 units Insulin NPH, Human [NovoLIN N] 12 unit SUB-Q QPMDIAB #100 units Labetalol [Normodyne TAB] 300 mg PO BID #30 tablet
--- NOTE | 2016-12-28 00:41 | Treadmill Report ---
NUCLEAR CARDIAC IMAGING INDICATION FOR PROCEDURE: Chest pain. Informed consent was obtained. DESCRIPTION FOR PROCEDURE: Resting nuclear cardiac images were performed 45-60 minutes following the intravenous administration of 15 mCi of technetium-99m Myoview. Stress myocardial perfusion imaging was performed 30-45 minutes following the intravenous administration of 28 mCi of technetium-99m Myoview. The study initially began as a treadmill stress test, but after only a short time, the patient was unable to continue on the treadmill due to leg fatigue and was converted to a vasodilator protocol. Vasodilator stress was achieved with the intravenous administration of 0.4 mg of Lexiscan. Images were acquired in a 180-degree arc from 45 degrees RONDON to 45 degrees LPO. After data acquisition and reconstruction, the images were processed and reoriented into the vertical long, horizontal long, and horizontal short axis slices. A polar color map of the horizontal short axis slices was generated and reviewed. The rotating planar images were reviewed in cinematic format on the computer console. Gated SPECT imaging demonstrates a left ventricular ejection fraction post-stress of 66% with normal wall motion. Myocardial perfusion imaging demonstrates no significant cavity change between stress and rest. No significant stress-induced perfusion defects were seen. Nuclear cardiac imaging demonstrates grossly normal post-stress left ventricular systolic function with no significant evidence for myocardial ischemia or necrosis. [facility]# [id number] JEMIMA/MEAGAN
== END 2016-12-27 15:34 | disposition home or self-care (01) | DRG 206 ==
LOC: ED 22:02 → 4A 12-26 09:28
PROVIDERS: ADMIT Internal Medicine; ATTEND Internal Medicine
DX: M94.0 Chondrocostal junction syndrome [Tietze] (principal); Z68.41 Body mass index [BMI] 40.0-44.9, adult; R07.9 Chest pain, unspecified; I10 Essential (primary) hypertension; E11.9 Type 2 diabetes mellitus without complications; E66.01 Morbid (severe) obesity due to excess calories; Z88.6 Allergy status to analgesic agent; Z88.8 Allergy status to other drugs, medicaments and biological substances
CPT/HCPCS: 36415; 71010; 78452; 80048; 81001; 81025; 82962; 84484; 85025; 85379; 90686; 93005; 93010; 93017; 96360; 96372; A9502; J1650; J1815; J2785; J7030

== ENCOUNTER 2017-03-27 11:08 | Outpatient (CLI) | payer MEDICAID ==
--- NOTE | 2017-03-27 12:18 | Mammography Report ---
BILATERAL MAMMOGRAM: FINDINGS: The breast tissue is heterogeneously dense, which could obscure detection of small masses (approximately 50%-75% glandular). No mass, distortion, suspicious calcification, or skin change is seen. No interval change when compared to prior examination in June 2011. CAD was utilized. IMPRESSION: Negative mammogram. There is no mammographic evidence of malignancy. RECOMMENDATION: Follow-up per ACS guidelines. BI-RADS CATEGORY: 1 = Negative ACR BI-RADS MAMMOGRAPHIC CODES: 0 = Needs additional imaging evaluation; 1 = Negative; 2 = Benign; 3 = Probably benign; 4 = Suspicious; 5 = Malignant; 6 = Known biopsy-proven malignancy COMMENT: 1. Dense breast tissue, i.e., adenosis, fibrocystic changes, etc., may obscure an underlying neoplasm. 2. Approximately 10% of cancers are not detected with mammography. 3. A negative mammography report should not delay biopsy if a clinically suspicious mass is present. COMMENT: Patient follow-up letters are generated in [place].
== END 2017-03-27 11:09 | disposition home or self-care (01) ==
LOC: MAMMO 11:08
PROVIDERS: ATTEND Physician Assistant
DX: Z12.31 Encounter for screening mammogram for malignant neoplasm of breast (principal)
CPT/HCPCS: 77067; G0202

== ENCOUNTER → 2019-03-13 | Outpatient (CLI) | payer MEDICAID | END | disposition home or self-care (01) | LOC: SLR 11:00 | PROVIDERS: ATTEND Otolaryngology | DX: G47.30 Sleep apnea, unspecified (principal); I10 Essential (primary) hypertension | CPT/HCPCS: G0399 ==

== ENCOUNTER 2019-10-05 12:44 | Emergency (ER) | payer MEDICAID ==
[2019-10-05 12:58] VITALS: BP 154/79
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
== END 2019-10-05 14:00 | disposition left against medical advice (07) ==
LOC: ED 12:44
DX: R51 Headache (principal); J34.89 Other specified disorders of nose and nasal sinuses; I10 Essential (primary) hypertension; E11.40 Type 2 diabetes mellitus with diabetic neuropathy, unspecified; Z88.8 Allergy status to other drugs, medicaments and biological substances; Y04.2XXA Assault by strike against or bumped into by another person, initial encounter; Y93.89 Activity, other specified; Y92.89 Other specified places as the place of occurrence of the external cause; Y99.8 Other external cause status
CPT/HCPCS: 99282